=== PATIENT | male | born 1945 | race Caucasian/White ===

== ENCOUNTER 2017-04-20 17:04 | Emergency (ER) | payer OTHER, MEDICAID ==
[~2017-04-20] VITALS: Ht 175.3 cm; Wt 66.7 kg
[2017-04-20 17:30] VITALS: BP 105/72
== END 2017-04-21 01:36 | disposition left against medical advice (07) ==
LOC: ER 17:04 → EDUNIT# 17:04 → ER 04-21 01:36
DX: R11.0 Nausea (principal); R52 Pain, unspecified; Z53.21 Procedure and treatment not carried out due to patient leaving prior to being seen by health care provider
CPT/HCPCS: 93005

== ENCOUNTER 2019-01-02 16:50 | Emergency (ER) | payer OTHER, MEDICAID ==
[~2019-01-02] VITALS: Ht 175.3 cm; Wt 66.7 kg
[2019-01-02 17:21] VITALS: BP 98/59
== END 2019-01-02 20:37 | disposition left against medical advice (07) ==
LOC: ER 17:06
DX: H53.8 Other visual disturbances (principal); Z53.21 Procedure and treatment not carried out due to patient leaving prior to being seen by health care provider